=== PATIENT | male | born 1955 | race Caucasian/White ===

== ENCOUNTER 2019-10-27 12:25 | Outpatient (CLI) | payer MEDICARE ==
[~2019-10-27 12:25] MED LIST: FISH OIL OMEGA1 EACH PO; FOLI0.8T2 PO; GABA-826 PO; LABE200T6 PO; MAGN250T2 PO; MUPI22OI NS; OLME1TAB32 PO; OXYC5CAP2 PO; RIVA10TA2 PO; SPIR50TA4 PO; TRAM50TA2 PO; [UNRECOGNIZED DRUG - REMARK]
[2019-10-27] MEDS ORDERED: LABE300T2 PO (13:47)
[2019-10-27] MEDS ORDERED: ASPI-191 PO (13:47)
[2019-10-27] MEDS ORDERED: OLME1TAB38 PO (13:47)
== END 2019-10-27 23:59 | disposition home or self-care (01) ==
LOC: STAR 12:25
PROVIDERS: ATTEND Orthopaedic Surgery
DX: Z02.9 Encounter for administrative examinations, unspecified (principal)

== ENCOUNTER 2019-10-29 10:41 | Outpatient (CLI) | payer MEDICARE ==
[~2019-10-29 10:41] MED LIST changes: +ASPI-191 PO; +LABE300T2 PO; +OLME1TAB38 PO
== END 2019-10-29 23:59 | disposition home or self-care (01) ==
LOC: STAR 10:41
PROVIDERS: ATTEND Anesthesiology
DX: Z20.828 Contact with and (suspected) exposure to other viral communicable diseases (principal)
CPT/HCPCS: 36415; 87635

== ENCOUNTER 2019-11-02 05:46 | Observation (INO) | payer MEDICARE ==
[2019-10-27 14:13] LABS: BASOPHILS # (AUTO) 0.03 x10^3/uL (0-0.1); BASOPHILS % (AUTO) 1 % (0-1); EOSINOPHILS # (AUTO) 0.27 x10^3/uL (0-0.4); EOSINOPHILS % (AUTO) 4 % (1-7); LYMPHOCYTES # (AUTO) 1.73 x10^3/uL (1-3.4); LYMPHOCYTES % (AUTO) 24 % (22-44); MD NO; MEAN CORPUSCULAR HEMOGLOBIN 29.3 pg (27.5-34.5); MEAN CORPUSCULAR VOLUME 86.3 fL (81-97); MEAN PLATELET VOLUME 7.4 fL (7.4-10.4); MONOCYTES # (AUTO) 0.67 x10^3/uL (0.2-0.8); MONOCYTES % (AUTO) 9 % (2-9); NEUTROPHILS # (AUTO) 4.53 x10^3/uL (1.8-6.8); NEUTROPHILS % (AUTO) 63 % (42-75); PLATELET COUNT 281 x10^3/uL (130-400); RED BLOOD COUNT 5.51 x10^6/uL (4.38-5.82); RED CELL DISTRIBUTION WIDTH 12.9 % (9.4-14.8)
[2019-10-27 14:22] LABS: CALCIUM 9.3 mg/dL (8.5-10.1); CHLORIDE 103 mmol/L (98-107)
[2019-10-27 14:25] LABS: ALANINE AMINOTRANSFERASE 59 U/L (12-78); ALBUMIN 4.1 g/dL (3.4-5.0); ALKALINE PHOSPHATASE 34 U/L (45-117); ANION GAP 8 mmol/L (5-15); BILIRUBIN,TOTAL 0.8 mg/dL (0.2-1.0); TOTAL PROTEIN 7.9 g/dL (6.4-8.2)
[~2019-11-02] VITALS: Ht 185.4 cm; Wt 108.9 kg
[2019-11-02] MEDS ORDERED: FENTANYL PF 100 MCG/2ML ONE ×4 (06:08→09:13)
[2019-11-02] MEDS ORDERED: MIDAZOLAM 1 MG/ML, 2ML ONE (06:08)
[2019-11-02] MEDS ORDERED: ROPIvacaine/PF 0.2%, 20 ML ONE (06:19)
[2019-11-02] MEDS ORDERED: SODIUM CHLORIDE 0.9% 50 ML ONE (06:19)
[2019-11-02] MEDS ORDERED: KETOROLAC 60 MG/2 ML ONE (06:19)
[2019-11-02] MEDS ORDERED: TRANEXAMIC ACID 100 MG/ML, 10ML ONE (06:19)
[2019-11-02] MEDS ORDERED: EPINEPHRINE 1 MG/ML, 1ML ONE (06:20)
[2019-11-02] MEDS ORDERED: LACTATED RINGERS 1,000 ML IV SCH (06:37)
[2019-11-02] MEDS ORDERED: CHLORHEXIDINE 15 ML UDC MM ONE (07:00)
[2019-11-02] MEDS ORDERED: VANCOMYCIN PER PHARMACY MC PRN (07:00)
[2019-11-02] MEDS ORDERED: VANCOMYCIN 2,000 MG in SODIUM CHLORIDE 0.9% 500 ML IV ONE (07:00)
[2019-11-02] MEDS ORDERED: LIDOCAINE-MPF 1%, 2ML INFIL ONE (07:00)
[2019-11-02] MEDS ORDERED: VANCOMYCIN 1,000 MG ONE ×2 (07:03→10:53)
[2019-11-02 07:16] VITALS: BP 162/95
[2019-11-02] MEDS ORDERED: PROPOFOL 10 MG/ML, 20ML ONE (08:33)
[2019-11-02] MEDS ORDERED: ONDANSETRON 2MG/ML, 2ML ONE (08:33)
[2019-11-02] MEDS ORDERED: SUCCINYLCHOLINE 20 MG/ML, 10ML ONE (08:33)
[2019-11-02] MEDS ORDERED: GLYCOPYRROLATE 0.2MG/1ML, 5ML ONE (08:33)
[2019-11-02] MEDS ORDERED: DEXAMETHASONE 4 MG/ML, 1ML ONE (08:33)
[2019-11-02] MEDS ORDERED: ROCURONIUM 10MG/ML,5ML ONE (08:33)
[2019-11-02] MEDS ORDERED: CEFAZOLIN 1,000 MG ONE (08:33)
[2019-11-02] MEDS ORDERED: SUGAMMADEX 200 MG/2 ML IVPush ONE (08:33)
[2019-11-02] MEDS ORDERED: NEOSTIGMINE 1 MG/ML, 10ML ONE (08:33)
[2019-11-02] MEDS ORDERED: SODIUM CHLORIDE 0.9% 1,000 ML IV SCH (08:47)
[2019-11-02] MEDS ORDERED: HYDROmorphone 1 MG/ML, 1ML INJ IVPush PRN ×2 (09:00→09:30)
[2019-11-02] MEDS ORDERED: PSYLLIUM PACKET PO PRN (09:00)
[2019-11-02] MEDS ORDERED: ALUMINUM/MAG/SIMETHICONE 30 ML UDC PO PRN (09:00)
[2019-11-02] MEDS ORDERED: TRANEXAMIC ACID 1,000 MG in SODIUM CHLORIDE 0.9% 100 ML IVPB ONE (09:00)
[2019-11-02] MEDS ORDERED: DIAZEPAM 5 MG TABLET PO PRN (09:00)
[2019-11-02] MEDS ORDERED: POLYETHYLENE GLYCOL 17 GM PACKET PO PRN (09:00)
[2019-11-02] MEDS ORDERED: MAGNESIUM HYDROXIDE 8%, 30ML UDC PO PRN (09:00)
[2019-11-02] MEDS ORDERED: PROMETHAZINE 25 MG/ML, 1ML IM PRN (09:00)
[2019-11-02] MEDS ORDERED: DOCUSATE 100 MG CAPSULE PO SCH (09:00)
[2019-11-02] MEDS ORDERED: KETOROLAC 30 MG/1 ML IV SCH (09:00)
[2019-11-02] MEDS ORDERED: DIPHENHYDRAMINE 50 MG CAPSULE PO PRN (09:00)
[2019-11-02] MEDS ORDERED: BISACODYL 10 MG SUPP PR PRN (09:00)
[2019-11-02] MEDS ORDERED: PROMETHAZINE 12.5 MG SUPP PR PRN (09:00)
[2019-11-02] MEDS ORDERED: ONDANSETRON 2MG/ML, 2ML IV PRN (09:00)
[2019-11-02] MEDS ORDERED: HYDROmorphone 2MG TABLET PO PRN (09:00)
[2019-11-02] MEDS ORDERED: DIPHENHYDRAMINE 50 MG/ML, 1ML IVPush PRN (09:00)
[2019-11-02] MEDS ORDERED: ONDANSETRON 4 MG TABLET PO PRN (09:00)
[2019-11-02] MEDS ORDERED: SENNA/DOCUSATE TABLET PO PRN (09:00)
[2019-11-02] MEDS ORDERED: OXYcodone IR 5MG TABLET PO PRN (09:00)
[2019-11-02] MEDS ORDERED: ONDANSETRON 2MG/ML, 2ML IVPush PRN ×2 (09:00→09:30)
[2019-11-02] MEDS: FENTANYL PF 100 MCG/2ML IV PRN ×2 (09:14→09:20)
[2019-11-02] MEDS ORDERED: PROMETHAZINE 25 MG/ML, 1ML IVPush PRN (09:30)
[2019-11-02] MEDS ORDERED: hydrALAzine 20 MG/ML, 1ML IV PRN (09:30)
[2019-11-02] MEDS ORDERED: LABETALOL 5MG/ML, 20ML IV PRN (09:30)
[2019-11-02] MEDS ORDERED: OXYcodone 5 MG/5 ML ORAL.SOL UDC PO PRN (09:30)
[2019-11-02] MEDS: ACETAMINOPHEN 500 MG TABLET PO SCH ×2 (10:31→15:05)
[2019-11-02] MEDS ORDERED: TAMSULOSIN 0.4 MG CAP.ER.24H PO ONE (13:00)
[2019-11-02] MEDS ORDERED: CEFAZOLIN PMX 1GM/50ML 50 ML IVPB SCH (16:00)
[2019-11-02] MEDS ORDERED: VANCOMYCIN PMX 1GM/200ML 200 ML IVPB ONE (19:00)
[2019-11-02] MEDS ORDERED: ASPIRIN 81 MG TABLET EC PO SCH (21:00)
[2019-11-03] MEDS ORDERED: DEXAMETHASONE 4 MG/ML, 1ML IVPush ONE (06:00)
== END 2019-11-02 13:18 | disposition home or self-care (01) ==
LOC: OUT 05:46 → 4NE 08:47 → OUT 10:37
PROVIDERS: ADMIT Orthopaedic Surgery; ATTEND Orthopaedic Surgery
DX: M17.11 Unilateral primary osteoarthritis, right knee (principal); E11.9 Type 2 diabetes mellitus without complications; I10 Essential (primary) hypertension; Z79.899 Other long term (current) drug therapy; Z20.828 Contact with and (suspected) exposure to other viral communicable diseases
CPT/HCPCS: 27447; 36415; 73560; 80053; 82962; 85025; 87081; 87147; 87635; 93005; 96361; 96374; 97162; C1713; C1776; G0378; J0171; J0330; J0690; J1100; J1885; J2250; J2405; J2704; J2795; J3010; J3370; J7030; J7040; J7120; J2710

== ENCOUNTER 2020-04-22 08:50 | Outpatient (CLI) | payer MEDICARE ==
[~2020-04-22 08:50] MED LIST changes: +DAPT500V6 IV; +ENOX100S4 SQ; +FERR324T5 PO; -FOLI0.8T2 PO; +FOLI0.8T5 PO; +METF500T PO; +OXYC5TAB98 PO; +Senna/Docusate PO; +WARF-36 PO
[2020-04-22] MEDS ORDERED: WARF10TA43 PO (09:25)
[2020-04-22] MEDS ORDERED: FERR324T5 PO (09:25)
[2020-04-22] MEDS ORDERED: SPIR50TA4 PO (09:25)
[2020-04-22] MEDS ORDERED: METF500T17 PO (09:25)
[2020-04-22] MEDS ORDERED: FOLI0.4T5 PO (09:25)
[2020-04-22] MEDS ORDERED: ASCO500T93 PO (09:25)
[2020-04-22 10:10] LABS: BASOPHILS % (AUTO) 1 % (0-1); EOSINOPHILS % (AUTO) 3 % (1-7); LYMPHOCYTES % (AUTO) 30 % (22-44); MEAN CORPUSCULAR HEMOGLOBIN 24.8 pg (27.5-34.5); MEAN CORPUSCULAR HGB CONC 32.4 g/dL (33.2-36.2); MEAN PLATELET VOLUME 7.1 fL (7.4-10.4); MONOCYTES % (AUTO) 11 % (2-9); NEUTROPHILS % (AUTO) 56 % (42-75); PLATELET COUNT 314 x10^3/uL (130-400); RED BLOOD COUNT 5.31 x10^6/uL (4.38-5.82); RED CELL DISTRIBUTION WIDTH 20.7 % (9.4-14.8)
[2020-04-22 10:19] LABS: ALANINE AMINOTRANSFERASE 25 U/L (12-78); ALBUMIN 3.9 g/dL (3.4-5.0); ANION GAP 7 mmol/L (5-15); CALCIUM 9.5 mg/dL (8.5-10.1); CHLORIDE 108 mmol/L (98-107); CREATININE 0.81 mg/dL (0.7-1.3)
[2020-04-22 10:22] LABS: ALKALINE PHOSPHATASE 50 U/L (45-117); BILIRUBIN,TOTAL 0.4 mg/dL (0.2-1.0); TOTAL PROTEIN 8.3 g/dL (6.4-8.2)
[2020-04-22 10:24] LABS: INTERNATIONAL NORMALIZED RATIO 1.56 (0.93-1.1); PROTHROMBIN TIME 16.5 Seconds (9.6-11.5)
[2020-04-22 11:08] LABS: MD MORPH REVIEW ONLY
[2020-04-22 11:09] LABS: ANISOCYTOSIS 1+; HYPOCHROMIA 1+; MICROCYTOSIS 1+; OVALOCYTES 1+
[2020-04-22 11:10] LABS: <PLATELET ESTIMATE> ADEQUATE; <PLT MORPHOLOGY> NORMAL PLT MORPH
== END 2020-04-22 23:59 | disposition home or self-care (01) ==
LOC: STAR 08:50
PROVIDERS: ATTEND Orthopaedic Surgery
DX: Z01.812 Encounter for preprocedural laboratory examination (principal); Z20.822 Contact with and (suspected) exposure to COVID-19; M17.11 Unilateral primary osteoarthritis, right knee; Z96.651 Presence of right artificial knee joint; Z79.01 Long term (current) use of anticoagulants
CPT/HCPCS: 36415; 80053; 83036; 85025; 85610; 85730; 87081; 87806; 93005; U0003; G0475